=== PATIENT | female | born 1965 | race Caucasian/White ===

== ENCOUNTER 2018-02-25 11:55 | Outpatient (CLI) | payer OTHER ==
--- NOTE | 2018-02-26 03:42 | Diagnostic Imaging Report ---
ITZEL MAYNARD [facility] [address] [facility] [address] [address] Report Submission Date: Feb 25, 2018 12:45:52 PM CENTER DIRECTOR Patient Study Name: JENNY STEWART Date: Feb 25, 2018 12:10:35 PM CENTER DIRECTOR Modality Type: DX Gender: F Description: UPPER EXTREMITY : 67 Institution: [facility] Physician: ITZEL MAYNARD Examination: Plain film right hand History: Pt states she tripped over weight lifting equipment, attempting to catch herself she landed on her hand. Majority of pain on lateral side. (Hx Comparison exams: None available Findings: 3 views of the right hand demonstrates cortical irregularity involving the base of the 5th metacarpal. No other fracture. No dislocation. No soft tissue abnormality. Impression: Fracture base 5th metacarpal. Electronically signed on Feb 25, 2018 12:45:52 PM CENTER DIRECTOR by: Ren RAMOS
--- NOTE | 2018-02-26 03:43 | Diagnostic Imaging Report ---
ITZEL MAYNARD [facility] [address] [facility] [address] 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 Majority of pain on lateral side. (Hx Comparison exams: None available Findings: 3 views of the right wrist demonstrates cortical irregularity involving the base of the 5th metacarpal. No other fracture. No dislocation. No soft tissue abnormality. Impression: Fracture base 5th metacarpal. Electronically signed on Feb 25, 2018 12:46:43 PM CLOTH MERCERIZER OPERATOR by: Ren RAMOS
== END 2018-02-25 11:56 ==
LOC: RAD 11:55
PROVIDERS: ATTEND Physician Assistant
DX: S62.316A Displaced fracture of base of fifth metacarpal bone, right hand, initial encounter for closed fracture (principal); W01.0XXA Fall on same level from slipping, tripping and stumbling without subsequent striking against object, initial encounter; Y93.89 Activity, other specified
CPT/HCPCS: 73110; 73130